=== PATIENT | male | born 1955 | race African-American/Black ===

== ENCOUNTER 2021-11-16 16:58 | Emergency (ER) | payer MEDICARE, MEDICAID ==
[~2021-11-16] VITALS: Ht 195.6 cm; Wt 118.0 kg
[~2021-11-16 16:58] MED LIST: AMLO5TAB4; FURO-151
[2021-11-16] MEDS ORDERED: HYDROCODONE/ACETAMINOPHEN 5/325MG TABLET PO ONE (21:15)
[2021-11-16 22:22] VITALS: BP 111/85
[2021-11-16] MEDS ORDERED: BACL-141 MT (22:40)
[2021-11-16] MEDS ORDERED: IBUP-2029 MT (22:40)
== END 2021-11-16 23:05 | disposition home or self-care (01) ==
LOC: ER 16:58
DX: S80.12XA Contusion of left lower leg, initial encounter (principal); W18.39XA Other fall on same level, initial encounter; Y93.89 Activity, other specified; Y92.89 Other specified places as the place of occurrence of the external cause; Y99.8 Other external cause status; K21.9 Gastro-esophageal reflux disease without esophagitis; I10 Essential (primary) hypertension
CPT/HCPCS: 73590; 82962; 93005; 99283